=== PATIENT | female | born 1965 | race Caucasian/White ===

== ENCOUNTER → 2018-06-24 16:10 | Outpatient (CLI) | payer OTHER, SELFPAY ==
--- NOTE | 2018-06-24 | DI.MG.S_ITS ---
BILATERAL DIGITAL SCREENING MAMMOGRAM 3D/2D WITH CAD: 06/24/2018 CLINICAL: Routine screening. Comparison is made to exams dated: 03/18/2016 mammogram, 03/07/2015 mammogram, and 01/03/2014 mammogram - [facility]. There are scattered fibroglandular elements in both breasts. Current study was also evaluated with a Computer Aided Detection (CAD) system. No significant masses, calcifications, or other findings are seen in either breast. There has been no significant interval change. IMPRESSION: NEGATIVE There is no mammographic evidence of malignancy. A 1 year screening mammogram is recommended. This exam was interpreted at Station ID: [id number]. NOTE: For mammograms, a report in lay terms will be sent to the patient. Approximately 15% of breast malignancies will not be visualized mammographically. In the management of a palpable breast mass, a negative mammogram must not discourage biopsy of a clinically suspicious lesion. Electronically Signed By: Phil cross/gabbi:06/25/2018 08:05:18 letter sent: Normal Exam ACR BI-RADS Category 1: Negative 3341F
== END ==
PROVIDERS: Family Provider Nurse Practitioner Family; PCP Nurse Practitioner Family; Visit Provider Family Medicine
DX: Z12.31 Encounter for screening mammogram for malignant neoplasm of breast (principal)
CPT/HCPCS: 77063; 77067

== ENCOUNTER → 2019-09-23 10:58 | Outpatient (CLI) | payer OTHER, SELFPAY ==
--- NOTE | 2019-09-23 | DI.MG.S_ITS ---
BILATERAL DIGITAL SCREENING MAMMOGRAM 3D/2D WITH CAD: 09/23/2019 CLINICAL: Routine screening. Comparison is made to exams dated: 06/24/2018 mammogram - [facility], 03/18/2016 mammogram, and 03/07/2015 mammogram - [facility]. The tissue of both breasts is heterogeneously dense. This may lower the sensitivity of mammography. Current study was also evaluated with a Computer Aided Detection (CAD) system. There is a new 7 mm oval asymmetry with a circumscribed margin in the left breast posterior depth superior region seen on the mediolateral oblique view only. No other significant masses, calcifications, or other findings are seen in either breast. IMPRESSION: INCOMPLETE: NEEDS ADDITIONAL IMAGING EVALUATION The new 7 mm oval asymmetry in the left breast most likely is a lymph node but is indeterminate. Additional views with possible ultrasound are recommended. This exam was interpreted at Station ID: [id number]. NOTE: For mammograms, a report in lay terms will be sent to the patient. Approximately 15% of breast malignancies will not be visualized mammographically. In the management of a palpable breast mass, a negative mammogram must not discourage biopsy of a clinically suspicious lesion. Electronically Signed By: Ethel agosto/:09/23/2019 15:24:24 letter sent: Additional Imaging Needed ACR BI-RADS Category 0: Incomplete 3340F
== END ==
PROVIDERS: Family Provider Nurse Practitioner Family; Referring Provider Family Medicine; Visit Provider Family Medicine
DX: Z12.31 Encounter for screening mammogram for malignant neoplasm of breast (principal)
CPT/HCPCS: 77063; 77067

== ENCOUNTER → 2023-02-25 12:35 | Outpatient (CLI) | payer SELFPAY ==
--- NOTE | 2023-02-25 | DI.MG.S_ITS ---
BILATERAL DIGITAL SCREENING MAMMOGRAM 3D/2D WITH CAD: 02/25/2023 CLINICAL: Routine screening. Comparison is made to exams dated: 09/23/2019 mammogram, 06/24/2018 mammogram - [facility], and 03/18/2016 mammogram - [facility]. There are scattered areas of fibroglandular density in both breasts (category b / 25%-50% glandular tissue). Current study was also evaluated with a Computer Aided Detection (CAD) system. No significant masses, calcifications, or other findings are seen in either breast. There has been no significant interval change. IMPRESSION: NEGATIVE There is no mammographic evidence of malignancy. A 1 year screening mammogram is recommended. Based on the Tyrer Cuzick model (a risk assessment model) the patient's lifetime risk is 9.7% and her 10 year risk is 3.6%. According to the ACR, ACS, and NCCN guidelines, an annual breast MRI exam along with mammogram is recommended if the patient's lifetime risk is 20% or greater. This exam was interpreted at Station ID: [id number]. NOTE: For mammograms, a report in lay terms will be sent to the patient. Approximately 15% of breast malignancies will not be visualized mammographically. In the management of a palpable breast mass, a negative mammogram must not discourage biopsy of a clinically suspicious lesion. Electronically Signed By: Rolo june/gabbi:02/25/2023 13:23:05 letter sent: Normal Exam ACR BI-RADS Category 1: Negative 3341F
== END ==
PROVIDERS: Family Provider Nurse Practitioner Family; PCP Nurse Practitioner Family; Referring Provider Nurse Practitioner Family; Visit Provider Nurse Practitioner Family
DX: Z12.31 Encounter for screening mammogram for malignant neoplasm of breast (principal)
CPT/HCPCS: 77063; 77067

== ENCOUNTER 2023-09-05 15:28 | Emergency (ER) | payer SELFPAY ==
[2023-09-05 16:11] VITALS: BP 159/74; PULSE 77; RESP 16; TEMP 36.9; O2SAT 94; BMI 37.8
--- NOTE | 2023-09-05 16:30 | PC.NURSE ---
Pt referred to ED today for right eye burn after going to [facility]. [facility] told pt to come to ED because burn is close to eye and she needed further evaluation. Pt denies pain, vision loss, changed or disturbances. Pt asymptomatic. Pt was helping with [employer] and accidentally got hot glue around eye. Pt flushed eye with water at the time of the incident and then applied ice. States that the hot glue did not go onto her eye. Pt a&ox4.
--- NOTE | 2023-09-05 17:23 | ED.SKABFB ---
HPI - Skin/Abscess/Foreign Bdy <Pramod Sams PA-C - Last Filed: 09/05/23 17:30> General Chief complaint: Skin/Abscess/Foreign Body Stated complaint: burn under rt eye Time Seen by Provider: 09/05/23 16:19 History of Present Illness HPI narrative: this is a 58-year-old female presents to the emergency department due to using a hot glue gun when some glue drizzled onto her cheek below her right eye. She states that none of the glue got into her actual eye. She denies any visual changes. She was denies any pain currently. No other symptoms. Related Data Allergies Allergy/AdvReac Type Severity Reaction Status Date / Time No Known Drug Allergies Allergy Verified 09/05/23 16:15 Review of Systems <LEILA Valdez Last Filed: 09/05/23 17:30> Review of Systems Narrative: GENERAL: Denies chills, fatigue, malaise, fever, sweats. HEENT: Denies sinus pain, ear pain, sore throat, difficulty swallowing, dizziness. RESPIRATORY: Denies dyspnea, cough, wheezing, hemoptysis, sputum. CARDIOVASCULAR: Denies chest pain, palpitations, orthopnea, edema, GASTROINTESTINAL: Denies nausea, vomiting, abdominal pain, diarrhea, constipation, melena. : Denies dysuria, frequency, incontinence, hematuria, urinary retention. MUSCULOSKELETAL: denies weakness, joint pain, or bony pain SKIN: Right cheek burn NEUROLOGIC: Denies weakness, headache, numbness, change in speech, confusion, seizures, incoordination. PSYCHIATRIC: No concerning psychosocial issues. 12 point review of systems is negative except for those stated above Patient History <Pramod Sams PA-C - Last Filed: 09/05/23 17:30> Social History Smoking Status: Never smoker Smoking Status: Never smoker alcohol intake frequency: holidays/special occasions only Substance Use Type: does not use Exam <LEILA Valdez Last Filed: 09/05/23 17:30> Narrative Exam Narrative: GENERAL: Well-developed patient, in mild distress. HEAD: Atraumatic. Normocephalic. EYES: Pupils equal round and reactive. Extraocular motions intact. No scleral icterus. No injection or drainage. ENT: Nose without bleeding, purulent drainage. Throat without erythema, tonsillar hypertrophy or exudate. Airway patent. NECK: Trachea midline. Non tender EXTREMITIES: No edema or joint tenderness. NEURO: AOx3. SKIN: evidence of dried glue to the right cheek. No significant erythema or blistering. No glue in the actual right eye Initial Vital Signs Initial Vital Signs: Vital Signs Temperature 98.5 F 09/05/23 16:11 Pulse Rate 77 09/05/23 16:11 Respiratory Rate 16 09/05/23 16:11 Blood Pressure 159/74 H 09/05/23 16:11 Pulse Oximetry 94 09/05/23 16:11 Oxygen Delivery Method Room Air 09/05/23 16:11 <Nicolasa Springer DO - Last Filed: 09/06/23 09:47> Initial Vital Signs Initial Vital Signs: Vital Signs Temperature 98.5 F 09/05/23 16:11 Pulse Rate 77 09/05/23 16:11 Respiratory Rate 16 09/05/23 16:11 Blood Pressure 159/74 H 09/05/23 16:11 Pulse Oximetry 94 09/05/23 16:11 Oxygen Delivery Method Room Air 09/05/23 16:11 Course <Pramod Sams PA-C - Last Filed: 09/05/23 17:30> Vital Signs Vital signs: Vital Signs - 8 hr 09/05/23 16:11 Temperature 98.5 F Pulse Rate 77 Respiratory Rate 16 Blood Pressure 159/74 H Pulse Oximetry 94 Oxygen Delivery Method Room Air <Nicolasa Springer DO - Last Filed: 09/06/23 09:47> Vital Signs Vital signs: Vital Signs - 8 hr 09/05/23 16:11 Temperature 98.5 F Pulse Rate 77 Respiratory Rate 16 Blood Pressure 159/74 H Pulse Oximetry 94 Oxygen Delivery Method Room Air MDM - Skin/Abscess/Foreign Bdy <Pramod Sams PA-C - Last Filed: 09/05/23 17:30> MDM Narrative Medical decision making narrative: ED course: this is a 58-year-old female presents to the emergency department due to how glue gun drooping glue onto her right cheek. She had not present with any visual changes and denies any eye pain. There was no evidence of any blistering or any signs of any burn. Recommended ice for comfort. CC: Right cheek burn Complicating co-morbidities: none Data collected from: Previous notes Medical records reviewed: patient was not been to this emergency department the past Differential considered, but not limited to: burn, I injury, blistering Exam documented above, pertinent findings include: no significant blistering or erythema to the cheek Lab Test results independently reviewed as above. Pertinent findings: none obtained Imaging studies independently reviewed: none obtained Scores Used: None MIPS Elements: None Consultations: None Treatments: none obtained Re-evaluations: none Discussion: Discussed plan with the patient was comfortable with the plan Diagnosis: superficial burn Disposition: see below, along with detailed discharge instructions that have been reviewed with patient as well as indications for ED re-evaluation and additional outpatient follow up Discharge Plan Departure Patient Disposition: Home Clinical Impression: Burn Activity Restrictions/Additional Instructions: Thank you for coming to the [facility] Emergency Department today. I believe the ice will help with the symptoms. The glue should wear off over time. I do not believe that there is any concern for any kind of concerning injury. Please return to the emergency department if you develop any Changes in vision, significant eye pain, or any other concerning signs or symptoms. I hope you feel better soon. Please follow up with your primary care provider within a week if your symptoms continue. If you do not have a primary care provider please contact the [facility] Resource line at [phone]. They will ask some questions about your medical history and help you get set up with a provider in the community. Referrals: Janice Whittington ARNP [Primary Care Provider] - Stand Alone Forms: Patient Portal/API ED Sign-out <Nicolasa Springer DO - Last Filed: 09/06/23 09:47> Cosign ED Attending Evan Attestation: I was available for consultation.
[2023-09-05 17:52] VITALS: BP 145/71; PULSE 77; RESP 20; O2SAT 98
== END 2023-09-05 17:53 | disposition home or self-care (01) ==
PROVIDERS: Emergency Provider Physician Assistant Medical; Family Provider Nurse Practitioner Family; PCP Nurse Practitioner Family
DX: T20.06XA Burn of unspecified degree of forehead and cheek, initial encounter (principal); X08.8XXA Exposure to other specified smoke, fire and flames, initial encounter
CPT/HCPCS: 99281; 99282